=== PATIENT | female | born 1990 | race Caucasian/White ===

== ENCOUNTER 2018-02-02 07:14 | Inpatient (IN) | payer OTHER ==
[~2018-02-02] VITALS: Ht 170.2 cm; Wt 73.9 kg
[2018-02-02 09:00] LABS: ABSOLUTE BASOPHIL COUNT 0 /CUMM (0.0-0.2); ABSOLUTE EOSINOPHIL COUNT 0 /CUMM (0.0-0.7); ABSOLUTE GRANULOCYTE CT 5.3 /CUMM (1.4-6.5); ABSOLUTE LYMPH COUNT 1.6 /CUMM (1.2-3.4); ABSOLUTE MONOCYTE COUNT 0.6 /CUMM (0.10-0.60); BASOPHIL % 0.3 % (0.0-2.0); EOSINOPHIL % 0.5 % (0-5); GRANULOCYTE % 69.4 % (42.2-75.2); HEMATOCRIT 36.1 % (37-47); MEAN CORPUSCULAR HGB 32.2 PG (27.0-31.0); MEAN CORPUSCULAR HGB CONC 34.1 G/DL (33.0-37.0); MEAN CORPUSCULAR VOLUME 94.5 FL (81.0-99.0); MEAN PLATELET VOLUME 8.4 FL (7.4-10.4); PLATELET COUNT 204 /CUMM (130-400); RBC DISTRIBUTION WIDTH 13.3 % (11.5-14.5); RED BLOOD CELL CT 3.82 /CUMM (4.20-5.40); WHITE BLOOD CELL COUNT 7.6 /CUMM (4.8-10.8)
[2018-02-02] MEDS ORDERED: PRENATAL ONE D1 EACH PO (10:12)
--- NOTE | 2018-02-02 16:37 | History & Physical ---
General Information and HPI MD Statement: Late entry I have seen and personally examined MARIO MADSEN and documented this H&P. Source of Information: patient, old records History of Present Illness: The patient is a 27 year old at 38 weeks and 2 days gestation who presented with a chief complaint of SROM 6a, clr. GBS pos. AP care uncomplicated Mild ctx. no vb. +FM. 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 No Contractions: q 3 #1 - FHR Baseline: 140 Category: 1 Estimated Weight: 3400 Presentation: vtx Patient for Induction? No Physical Exam: nad abd soft nt gravid ext nt no ed Labs Blood Type & Rh: O pos Antibody Screen: neg Hct/Hgb & Platelets #1: 13.3/ 40.4, 254 Hct/Hgb & Platelets #2: 12/ 38.1, 239 Rubella: imm VDRL #1: neg VDRL #2: neg HbsAg: neg. HIV #1: neg HIV #2 neg 1 Hr P 3 Hr P, 124, 83, 54 Group B Strep: pos Initial Ultrasound: 07/05/17 siup 8wks cwd Anatomy Ultrasound: 09/24 nl jaci, plac ant Ultrasound for EFW: 01/16 efw43%ile Genetic Testing: nl cffdna nl NT hgb aa cf neg Last 24 Hrs of Labs/Dante: Laboratory Tests 02/02/18 0805: CBC w Diff NO MAN DIFF REQ, RBC 3.82 L, MCV 94.5, MCH 32.2 H, MCHC 34.1, RDW 13.3, MPV 8.4, Gran % 69.4, Lymphocytes % 21.7, Monocytes % 8.1, Eosinophils % 0.5, Basophils % 0.3, Absolute Granulocytes 5.3, Absolute Lymphocytes 1.6, Absolute Monocytes 0.6, Absolute Eosinophils 0, Absolute Basophils 0 02/02/18 0720: Membrane Rupture POSITIVE, Urine Color STRAW, Urine Clarity CLEAR, Urine pH 6.0, Ur Specific [place] 1.010, Urine Protein NEG, Urine Ketones NEG, Urine Nitrite NEG, Urine Bilirubin NEG, Urine Urobilinogen 0.2, Ur Leukocyte Esterase TRACE H, Ur Microscopic SEDIMENT EXAMINED, Urine RBC FEW H, Urine WBC RARE, Urine Hemoglobin NEG, Urine Glucose NEG Microbiology 02/02 1115 URINE ROUT: Urine Culture - RECD Assessment/Plan Assessment/Plan: 27yo P0 @ 38+ wks srom 6a, early labor, GBS pos, afeb, and maternal status reassuring -admit -vanco gbs proph (amox allergy) -expectant mgmt -monitoring -ansvd As Ranked By This Provider Problem List: 1. Core Measures Venous Thromboembolism VTE Risk Factors / No Mechanical VTE Prophylaxis d/t Early Ambulation No VTE Pharm Prophylaxis d/t LowRisk-No Interven Req'd
--- NOTE | 2018-02-02 16:50 | Labor & Delivery Summary ---
Delivery Summary Vaginal Delivery: Vaginal: spontaneous Episiotomy/Lacerations: Episiotomy/Lacerations: right vaginal sulcal and right labial Type: vaginal sulcal and labial Repair: 2-0 and 3-0 lisa Anesthesia: epidural Placenta: Placenta: spontanteous, normal, 3 vessel, clot on placental surface Anesthesia: block Cord PH Value: 7.36 art Baby's Weight: 3210gr Apgars - 1 Min: 8 Apgars - 5 Min: 9 Additional Comments: Pt FD / +1 and pushing w/ epidural. Controlled of live male, apg 03/06 @ 312p. Head del over intact perineum from ANN. Mouth and nose bulb suctioned. Body del w/o difficulty. Baby to mom. Cord clamped and cut. 3vc plac del spont intact. 4cm adherent dark clot noted on placental surface. Will send to path. Right sulcal and right labial lacs repaired usual fashion. Fundus contracted. Good hemostasis. Pt ella well. EBL 650cc.
[2018-02-03 08:21] LABS: ABSOLUTE BASOPHIL COUNT 0 /CUMM (0.0-0.2); ABSOLUTE EOSINOPHIL COUNT 0 /CUMM (0.0-0.7); ABSOLUTE LYMPH COUNT 2.1 /CUMM (1.2-3.4); RED BLOOD CELL CT 3.11 /CUMM (4.20-5.40)
[2018-02-03 08:58] LABS: ABSOLUTE GRANULOCYTE CT 6.7 /CUMM (1.4-6.5); ABSOLUTE MONOCYTE COUNT 0.7 /CUMM (0.10-0.60); BASOPHIL % 0.4 % (0.0-2.0); EOSINOPHIL % 0.4 % (0-5); GRANULOCYTE % 69.9 % (42.2-75.2); MEAN CORPUSCULAR HGB 32.3 PG (27.0-31.0); MEAN CORPUSCULAR HGB CONC 34.3 G/DL (33.0-37.0); MEAN CORPUSCULAR VOLUME 94.2 FL (81.0-99.0); MEAN PLATELET VOLUME 8.6 FL (7.4-10.4); PLATELET COUNT 179 /CUMM (130-400); RBC DISTRIBUTION WIDTH 13.6 % (11.5-14.5); WHITE BLOOD CELL COUNT 9.6 /CUMM (4.8-10.8)
[2018-02-03 09:10] LABS: HEMATOCRIT 29.2 % (37-47)
--- NOTE | 2018-02-03 12:46 | PN- OBGYN ---
Surgical Brief Attending Note Brief Attending Note: PPD 1 Patient found sitting up in bed in NAD. Having some uterine cramping while nursing. Mild lochia rubra, no clots. +void without difficulty. Tolerating all PO. Ambulating without difficulty. afebrile, VS normal lips moist, EOMI, neck supple Breasts - soft, no erythema Lungs - good air movement, no wheeze Cor - regular, 802 Abd - soft, NT, no CVAT Fundus - firm, NT Perineum - intact, dry Extr - benign bilat. edema Labs - H/H 05/26 (from ) A: doing well acute mild anemia, not symptomatic s/p repair sulcus laceration P: continue supportive care restart PNV, and extra iron after 1st BM Patient requests circumcision for her son Alexx. The risks, benefits, indications and alternatives discussed, questions answered, and informed consent obtained. Baby will be NPO, and Emla ointment will be on site, both 1 hour prior to procedure.
--- NOTE | 2018-02-04 09:58 | PN- OBGYN ---
Surgical Brief Attending Note Brief Attending Note: pt feeling well. amb / void / ella po. +bf. pain well controlled w/ motrin. afeb, v/ss nad abd soft nt ff blair min lochia ext nt no ed ppd 2 s/p , doing well -d/c home w/ f/u in 2 wks in office -pp instructions reviewed
[2018-02-04] MEDS ORDERED: IBUPROFEN800 M1 PO (10:02)
== END 2018-02-04 10:45 | DRG 775 ==
LOC: CBCO 07:14 → GNO 07:44
PROVIDERS: Obstetrics & Gynecology
PROC: 0HQ9XZZ Repair Perineum Skin, External Approach (ICD-10-PCS; principal; 2018-02-02)
PROC: 10E0XZZ Delivery of Products of Conception, External Approach (ICD-10-PCS; principal; 2018-02-02)
DX: O70.0 First degree perineal laceration during delivery (principal); Z37.0 Single live birth; Z3A.38 38 weeks gestation of pregnancy; Z88.1 Allergy status to other antibiotic agents; O99.824 Streptococcus B carrier state complicating childbirth
CPT/HCPCS: GNOP; GNOS; 36415; 81001; 84112; 87086; J3370; J7040; J7120